=== PATIENT | female | born 1990 | race Caucasian/White ===

== ENCOUNTER → 2021-12-20 | Outpatient (CLI) | payer OTHER ==
--- NOTE | 2021-12-20 08:12 | RAD ---
STUDY: US ABDOMEN LIMITED INDICATION: Periumbilical pain. COMPARISON: None. TECHNIQUE: Limited abdominal ultrasound targeted at the umbilicus. Findings: No significant change in the configuration of the periumbilical region with the patient at rest or wi th Valsalva. On the cine clip no abdominal wall defect is identified. Impression: No bowel containing hernia to explain the patient's pain. Electronically signed by: FABI ROJAS MD (12/20/2021 8:09 AM) [id number]
== END ==
LOC: US 07:35
PROVIDERS: ATTEND Nurse Practitioner
DX: R10.33 Periumbilical pain (principal)
CPT/HCPCS: 76705